=== PATIENT | male | born 1970 | race Caucasian/White ===

== ENCOUNTER → 2017-10-14 | Outpatient (CLI) | payer BC ==
[2017-10-14 08:18] LABS: Basophils # (A) 0.1 k/uL (0-0.2); Basophils % (A) 1 %; Eosinophils # (A) 0.4 k/uL (0-0.7); Eosinophils % (A) 5 %; HCT 47.9 % (39.0-53.0); HGB 15.8 gm/dL (13.0-17.5); Lymphocytes # (A) 2.2 k/uL (1.0-4.8); Lymphocytes % (A) 34 %; MCH 30.2 pg (25.0-35.0); MCHC 33.1 g/dL (31.0-37.0); MCV 91.2 fL (80.0-100.0); Mean Platelet Volume 7.2; Monocytes # (A) 0.5 k/uL (0-1.0); Monocytes % (A) 7 %; Neutrophils # (A) 3.3 k/uL (1.3-7.7); Neutrophils % (A) 50 %; Platelet Count 302 k/uL (150-450); RBC 5.25 m/uL (4.30-5.90); RDW 14.4 % (11.5-15.5); WBC 6.6 k/uL (3.8-10.6)
[2017-10-14 08:42] LABS: ALT 88 U/L (21-72); AST 42 U/L (17-59); Albumin 4.1 g/dL (3.5-5.0); Alkaline Phosphatase 57 U/L (38-126); Anion Gap 8 mmol/L; Blood Urea Nitrogen 17 mg/dL (9-20); Calcium 9.3 mg/dL (8.4-10.2); Carbon Dioxide 26 mmol/L (22-30); Chloride 107 mmol/L (98-107); Cholesterol 178 mg/dL (<200); Glucose 116 mg/dL (74-99); HDL Cholesterol 49 mg/dL (40-60); LDL Cholesterol,Calculated 118 mg/dL (0-99); Potassium 4.8 mmol/L (3.5-5.1); Sodium 141 mmol/L (137-145); Total Bilirubin 0.8 mg/dL (0.2-1.3); Total Protein 6.9 g/dL (6.3-8.2); Triglycerides 57 mg/dL (<150)
== END | disposition home or self-care (01) ==
LOC: LABWHC1 07:39
PROVIDERS: ATTEND Family Medicine
DX: Z00.00 Encounter for general adult medical examination without abnormal findings (principal); D64.9 Anemia, unspecified; I10 Essential (primary) hypertension; R60.9 Edema, unspecified
CPT/HCPCS: 36415; 80053; 80061; 84439; 84443; 85025

== ENCOUNTER 2021-03-23 08:43 | Day surgery (SDC) | payer BC ==
[2021-03-20 10:57] VITALS: BMI 31.5
[~2021-03-23 08:43] MED LIST: LACTATED RINGERS 1,000 ML IV SCH; LIDOCAINE 1% (10MG/ML) FOR IV START INTRADERMA PRN
[2021-03-23 09:20] VITALS: RESP 16; TEMP 97.2
[2021-03-23] MEDS ORDERED: PROPOFOL 10 MG/ML 20 ML VIAL IV ONE (09:51)
[2021-03-23] MEDS ORDERED: LIDOCAINE 1% INJ 10MG/ML (20 ML MDV) ONE (09:51)
--- NOTE | 2021-03-23 10:07 | P.PCN ---
Date of Procedure: 03/23/21 Procedure(s) Performed: BRIEF HISTORY: Patient is a 50-year-old pleasant male scheduled for an elective colonoscopy as a part of evaluation of intermittent rectal bleeding. PROCEDURE PERFORMED: Colonoscopy. PREOPERATIVE DIAGNOSIS: Intermittent rectal bleeding. IV sedation per Anesthesia. PROCEDURE: After informed consent was obtained, the patient, was brought into the endoscopy unit. IV sedation was administered by Anesthesia under continuous monitoring. Digital rectal examination was normal. Initially the Olympus CF-160 flexible video colonoscope was then inserted in the rectum, gradually advanced into the cecum without any difficulty. Careful examination was performed as the scope was gradually being withdrawn. Ileocecal valve and the appendiceal orifice were visualized and appeared normal. Prep was excellent. Mucosa of the cecum, ascending colon, transverse colon, descending colon, sigmoid colon, and rectum appeared normal. Retroflexion was performed in the rectum and small internal hemorrhoids were seen. The patient tolerated the procedure well. IMPRESSION: Normal-appearing colon from rectum to cecum no evidence of colorectal neoplasia . Small internal hemorrhoids. RECOMMENDATIONS: Findings of this examination were discussed with the patient as well as his family. Recommended a high-fiber diet and fiber supplements a regular basis. He was advised to have a repeat screening colonoscopy in 10 years.
[2021-03-23 10:27] VITALS: BP 132/85; PULSE 72
== END 2021-03-23 10:44 | disposition home or self-care (01) ==
LOC: ORWHC2ENDO 08:43
PROVIDERS: ATTEND Internal Medicine Gastroenterology
DX: K62.5 Hemorrhage of anus and rectum (principal); K64.8 Other hemorrhoids; F17.210 Nicotine dependence, cigarettes, uncomplicated
CPT/HCPCS: 45378; J2001; J2704

== ENCOUNTER → 2021-06-01 | Outpatient (CLI) | payer BC ==
--- NOTE | 2021-06-01 08:32 | CT ---
EXAMINATION TYPE: CT abdomen w con DATE OF EXAM: 06/01/2021 COMPARISON: None HISTORY: vomiting, mid abd pain CT DLP: 1351.7 mGycm CONTRAST: CT scan of the abdomen is performed with Oral Contrast and with IV Contrast, patient injected with 10 0 mL of Isovue 300. FINDINGS: LUNG BASES-: No visible nodule. No infiltrate. LIVER/GB: No calcified gallstones. No space occupying hepatic lesion. Biliary tree is of normal ca liber. PANCREAS: No inflammation. No distinct mass. SPLEEN: No splenic enlargement. No lesion seen. ADRENALS: No nodule. No thickening. KIDNEYS/BLADDER: No hydronephrosis. No nephrolithiasis. No distinct renal mass. Urinary bladder g rossly unremarkable. BOWEL: Normal appendix. Normal bowel caliber. No inflammation. LYMPH NODES: No greater than 1cm abdominal or pelvic lymph nodes are appreciated. AORTA: No significant abnormality. OSSEOUS STRUCTURES: No significant abnormality is seen. OTHER: No significant additional abnormality is seen. IMPRESSION: 1. No distinct abnormality seen to account for the patient's symptoms.
== END | disposition home or self-care (01) ==
LOC: RADCTMAIN 07:25
PROVIDERS: ATTEND Family Medicine
DX: R11.2 Nausea with vomiting, unspecified (principal)
CPT/HCPCS: 74160; Q9967

== ENCOUNTER 2021-08-31 11:46 | Day surgery (SDC) | payer BC ==
[2021-08-30 08:23] VITALS: BMI 32.3
[2021-08-31 12:47] VITALS: RESP 16; TEMP 97.8
[2021-08-31] MEDS: LACTATED RINGERS 1,000 ML IV SCH ×2 (12:48→13:12)
--- NOTE | 2021-08-31 13:25 | P.PCN ---
Date of Procedure: 08/31/21 Procedure(s) Performed: BRIEF HISTORY: Patient is a 50-year-old, pleasant, white male scheduled for an upper endoscopy as a part of evaluation of epigastric pain associated with intermittent nausea vomiting last 20 years duration. However his symptoms have progressively getting worse lately. His been taking Aleve on a regular basis for degenerative joint disease.. PROCEDURE PERFORMED: Esophagogastroduodenoscopy with biopsy. PREOPERATIVE DIAGNOSIS: Epigastric pain/nausea vomiting of several years du ration. IV sedation per anesthesia. PROCEDURE: After informed consent was obtained, the patient was brought into the endoscopy unit. IV sedation was administered by Anesthesia under continuous monitoring. Initially the Olympus GIF-140 video endoscope was inserted into the mouth. Esophagus intubated without any difficulty. It was gradually advanced into the stomach and duodenum and carefully examined. The bulb and the second part of the duodenum appeared normal. Biopsies were done from the duodenum to rule out celiac disease. The scope at this time was withdrawn to the stomach, adequately insufflated with air, and upon careful examination, mucosa of the antrum had multiple scattered erosions and biopsies were done from this area., body, cardia and the fundus appeared normal. The scope was then withdrawn into the esophagus. The GE junction was located at 39 cm from the incisors. The esophagus appeared normal. There were no erosions or ulcerations seen, biopsies were done from this area and the patient tolerated the procedure well. IMPRESSION: 1. Antral erosive gastritis. 2. Normal-appearing esophagus with no evidence of esophagitis. RECOMMENDATIONS: The findings of this examination were discussed with the patient as well as her family. He was advised to follow with the biopsy results. He will continue on omeprazole 20 mg daily and follow antireflux measures..
[2021-08-31 13:45] VITALS: BP 121/78; PULSE 72
== END 2021-08-31 14:22 | disposition home or self-care (01) ==
LOC: ORWHC2ENDO 11:46
PROVIDERS: ATTEND Internal Medicine Gastroenterology
DX: K29.50 Unspecified chronic gastritis without bleeding (principal); K21.00 Gastro-esophageal reflux disease with esophagitis, without bleeding; F17.210 Nicotine dependence, cigarettes, uncomplicated
CPT/HCPCS: 43239; 88305

== ENCOUNTER → 2023-02-17 | Outpatient (CLI) | payer OTHER ==
--- NOTE | 2023-02-18 09:38 | MR ---
EXAMINATION TYPE: MR shoulder LT wo con DATE OF EXAM: 02/17/2023 COMPARISON: Outside left shoulder x-ray January 17, 2023 HISTORY: Left shoulder pain with inability to raise arm over head for one month after dislocation inj ury TECHNIQUE: Multiplanar, multisequence imaging of the left shoulder is performed without contrast. FINDINGS: Suboptimal due to patient motion, repeat imaging sequences performed. Rotator Cuff: Full-thickness retracted tear of the supraspinatus tendon with some protraction to leve l of the distal clavicle coronal image 17. Narrow full-thickness retracted tear of the infraspinatus tendon with a few inferior fibers remaining intact. Prominent fluid surrounds the humeral head at thi s level. Fluid surrounds the subscapularis tendon. Tearing is present. Fluid surrounds and within the subscapularis muscle bulk. Acromioclavicular Joint: Moderate to severe Severe narrowing and capsular hypertrophy with mild spurr ing. Glenohumeral Joint: Moderate to large sized joint effusion. Labrum: Superior labral tear is present. Biceps Tendon: The long head of biceps is dislocated anteromedially from normal location within bicip ital groove. Increased signal and thickening of the intracapsular portion. Labral anchor not well see n. Bone marrow signal: No focal abnormal marrow signal is appreciated. No bony Hill-Sachs type deformity . Other: No additional significant abnormality is appreciated. IMPRESSION: Significant full-thickness rotator cuff tears with associated large joint effusion. Super ior labral tear. Dislocated long head of biceps tendon.
== END | disposition home or self-care (01) ==
LOC: RADMRIMAIN 19:22
PROVIDERS: ATTEND Orthopaedic Surgery
DX: S43.005A Unspecified dislocation of left shoulder joint, initial encounter (principal); S43.432A Superior glenoid labrum lesion of left shoulder, initial encounter

== ENCOUNTER → 2023-03-24 | Outpatient (CLI) | payer OTHER ==
[2023-03-24 16:39] LABS: BUN/Creat Ratio 21.75 Ratio (12.00-20.00); Blood Urea Nitrogen 17.4 mg/dL (9.0-27.0); Carbon Dioxide 22.5 mmol/L (21.6-31.8); Chloride 103 mmol/L (96-109); Glucose 145 mg/dL (70-110); Sodium 136 mmol/L (135-145)
[2023-03-24 16:40] LABS: Basophils # (A) 0.04 X 10*3/uL (0.00-0.10); Basophils % (A) 0.5 %; Eosinophils # (A) 0.23 X 10*3/uL (0.04-0.35); Eosinophils % (A) 3.1 %; HCT 44.6 % (39.6-50.0); HGB 14.5 d/dL (12.0-15.0); Lymphocytes # (A) 2.24 X 10*3/uL (0.90-5.00); Lymphocytes % (A) 30.4 %; MCH 30.8 pg (27.0-32.0); MCHC 32.5 d/dL (32.0-37.0); MCV 94.7 FL (80.0-97.0); Mean Platelet Volume 10.6 FL (9.5-12.2); Monocytes # (A) 0.48 X 10*3/uL (0.20-1.00); Monocytes % (A) 6.5 %; NRBC Per 100 WBC 0 X 10*3/uL (0.00-0.01); Neutrophils # (A) 4.36 X 10*3/uL (1.80-7.70); Neutrophils % (A) 59.1 %; Platelet Count 282 X 10*3/uL (140-440); RBC 4.71 X 10*6/uL (4.40-5.60); RDW 13.2 % (11.5-14.5); WBC 7.38 X 10*3/uL (4.50-10.00)
== END | disposition home or self-care (01) ==
LOC: LABPAT 07:56
PROVIDERS: ATTEND Orthopaedic Surgery
DX: Z01.812 Encounter for preprocedural laboratory examination (principal); M75.41 Impingement syndrome of right shoulder; S46.012A Strain of muscle(s) and tendon(s) of the rotator cuff of left shoulder, initial encounter; Y99.9 Unspecified external cause status
CPT/HCPCS: 36415; 80048; 85025; 93005

== ENCOUNTER 2023-04-04 07:36 | Day surgery (SDC) | payer OTHER ==
[2023-03-28 12:04] VITALS: BMI 33.0
--- NOTE | 2023-04-03 08:43 | P.HPOR ---
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 He had a fall and dislocated his shoulder. He's having pain and significant weakness ever since. He is having night symptoms as well. He notes some problems with the shoulder off and on for the past 2 years. Review of Systems As per HPI Past Medical History Past Medical History: Osteoarthritis (OA) Additional Past Medical History / Comment(s): exposed to COVID person on 08/18/21-had 3 neg COVID tests since then, denies symptoms, did have mask on and social distance History of Any Multi-Drug Resistant Organisms: None Reported Past Surgical History: Joint Replacement, Orthopedic Surgery, Tonsillectomy Additional Past Surgical History / Comment(s): Colonoscopies. RT SALUD, RT KNEE SX, Past Anesthesia/Blood Transfusion Reactions: No Reported Reaction Smoking Status: Current every day smoker - Past Family History Mother Family Medical History: No Reported History Medications and Allergies Home Medications Medication Instructions Recorded Confirmed Type Acetaminophen [Tylenol Arthritis] 1,300 mg PO Q8H PRN 03/28/23 03/28/23 History Allergies Allergy/AdvReac Type Severity Reaction Status Date / Time bacitracin AdvReac BLISTERS, Verified 03/28/23 11:42 [From Neosporin EATS SKIN ([id number])] neomycin AdvReac BLISTERS, Verified 03/28/23 11:42 [From Neosporin EATS SKIN ([id number])] polymyxin B AdvReac BLISTERS, Verified 03/28/23 11:42 [From Neosporin EATS SKIN ([id number])] Physical Examination - Shoulder left Appearance: effusion Effusion grade: trace Tenderness with palpation: anterior, bicipital groove Pain: with abduction, with forward flexion ROM: forward flexion: 20 degrees (90 passively) ROM: external rotation: 10 degrees Crepitus with motion: Yes Strength: abduction: 3/5 Strength: forward flexion: 3/5 Strength: external rotation: 3/5 Tests: internal impingement tests: positive, external impingment tests: positive, anterior instability tests: positive Results The patient is a well-developed well-nourished male approximately 5 foot 10, 230 pounds of endomorphic habitus. HEENT exam is nonfocal, neck is supple. He is tender about the left shoulder anterior subacromial space. Moderate crepitus is noted. He has limited active range of motion with increased passive motion. His distal neurovascular exam appears intact in the left upper extremity. - Diagnostic results Shoulder MRI: image reviewed (Left shoulder MRI is reviewed and shows a large retracted rotator cuff tear.) Assessment and Plan Assessment: Left anterior glenohumeral dislocation with large retracted rotator cuff tear Probable acute on chronic left rotator cuff tear Plan: I talked to the patient went regarding his condition along with treatment options. At this point is quite limited having both pain and weakness and limited motion after this acute injury. After thorough discussion he opted to proceed with surgery. We'll plan to proceed with arthroscopic evaluation with rotator cuff debridement versus repair. He understands the entire rotator cuff may not be repairable. We'll also plan on subacromial decompression and possible biceps tenodesis. Risks and benefits were discussed at length in layman's terms. We will likely perform that as an outpatient procedure.
[2023-04-04] MEDS ORDERED: ONDANSETRON 4 MG/2 ML VIAL IVP ONE (07:53)
[2023-04-04] MEDS ORDERED: HYDROmorphone 0.5 MG/0.5 ML SYRINGE IVP PRN (07:53)
[2023-04-04] MEDS ORDERED: DEXAMETHASONE SOD PHOSPHATE 4 MG/ML 1 ML VIAL IV ONE (07:53)
[2023-04-04] MEDS ORDERED: LACTATED RINGERS 1,000 ML IV SCH (07:53)
[2023-04-04 08:22] VITALS: RESP 16
[2023-04-04] MEDS ORDERED: MIDAZOLAM 2 MG/2 ML VIAL IVP ONE (08:57)
[2023-04-04] MEDS ORDERED: ePHEDrine 50 MG/ML 1 ML VIAL ONE (09:12)
[2023-04-04] MEDS ORDERED: SUCCINYLCHOLINE CHLORIDE 200 MG/10 ML VIAL IV ONE (09:12)
[2023-04-04] MEDS ORDERED: KETOROLAC 15 MG/ML 1 ML VIAL ONE (09:12)
[2023-04-04] MEDS ORDERED: PROPOFOL 10 MG/ML 20 ML VIAL IV ONE (09:12)
[2023-04-04] MEDS ORDERED: LIDOCAINE 2% INJ 20 MG/ML (2 ML VIAL) ONE (09:12)
[2023-04-04] MEDS ORDERED: HYDROmorphone (PF) 1 MG/ML ONE (09:12)
[2023-04-04] MEDS ORDERED: DEXAMETHASONE SOD PHOSPHATE 4 MG/ML 1 ML VIAL ONE (09:12)
[2023-04-04] MEDS ORDERED: fentaNYL (PF) 50 MCG/ML 2 ML AMP ONE (09:12)
[2023-04-04] MEDS ORDERED: MIDAZOLAM 2 MG/2 ML VIAL ONE (09:12)
[2023-04-04] MEDS ORDERED: ROPIVACAINE 5 MG/ML 30 ML VIAL ONE (09:12)
[2023-04-04] MEDS ORDERED: PHENYLEPHRINE-0.9% NACL SYG 1,000 MCG/10 ML SYRINGE ONE (09:12)
--- NOTE | 2023-04-04 11:37 | P.OP ---
Date of Procedure: 04/04/23 Preoperative Diagnosis: Large retracted left rotator cuff tear Postoperative Diagnosis: Same in addition to high-grade partial-thickness tear intra-articular portion long head of the biceps Procedure(s) Performed: Left shoulder arthroscopic subacromial decompression/biceps tenotomy/rotator cuff repair Implants: Arthrex 4.75 mm swivel lock anchor 3, 5.5 mm swivel lock anchor 1 Anesthesia: GMA, stuart Surgeon: Michael Hussein Cleaning Specialist #1: Chris Trujillo Estimated Blood Loss (ml): 10 Pathology: none sent Condition: stable Disposition: PACU Indications for Procedure: The patient's a 52-year-old male presents with left shoulder pain after dislocating it in traumatic event previously with significant weakness and pain. Upon evaluation he is noted to have a large retracted rotator cuff tear. A discussion of the risks and benefits of operative intervention was made with patient. He opted to proceed with surgery. Operative risks to include infection, neurovascular injury, development of blood clots, possible tendon re rupture, possible postoperative stiffness and need for subsequent procedures was discussed. Informed consent was obtained. Operative Findings: As below Description of Procedure: The patient was brought to the operating room, and after induction of general anesthesia was placed in a beachchair position. A preoperative interscalene block was placed for postoperative analgesia. I examined the left shoulder. He did have moderate loss of passive forward elevation. The left upper extremity was prepped and draped in normal fashion. The bony outlines the acromion, distal clavicle, and coracoid process were outlined with a skin marker. The glenohumeral joint was inflated with 50 mL of saline utilizing a spinal needle from posterior approach. A posterior portal was made through a 5 mm skin incision 1 cm medial and inferior to the posterior lateral border time. A blunt trocar was used to easily into the joint. Diagnostic arthroscopy was performed. An anterior portal was made just lateral to the coracoid process entering the joint above the subscapularis tendon. The subscapularis tendon appeared to be intact. Anterior labrum was detached. The inferior recess was inspected. The posterior labrum was intact. There was a high-grade partial-thickness tear of the long head of the biceps involving interarticular portion. It was elected to proceed with release at this point. This was released from the superior labrum with electrocautery and was allowed to retract to the bicipital groove. On inspection the rotator cuff, a large tear involving the supraspinatus, infraspinatus, and a portion of the teres minor was noted retracted to the level of the glenoid. The arthroscope was placed into the subacromial space. A late ral portal was made 2 centimeters inferior to the anterior lateral border of the acromion. The rotator cuff was then mobilized with a traction suture. This was then brought back to the midportion of the greater tuberosity. The soft tissue on the undersurface of the acromion was debrided with a motorized shaver and electrocautery clearly defining the anterior medial and lateral borders as well as the distal clavicle. An anterior inferior acromioplasty was performed with a motorized anthony starting anterolateral, then extending this posteriorly, then extending this medially. I converted to a flat acromion and this was verified in the posterior and lateral viewing portals. The greater tuberosity was lightly decorticating with a shaver down to a bleeding bony surface. An accessory superior lateral portal was made just off the lateral edge of the acromion for anchor placement. 2 anchors were then placed just off the articular surface with the appropriate starting awl. 4.75 mm anchors preloaded with #2 fiber tape were placed. Good purchase was obtained. These fiber tapes were then passed the rotator cuff with a scorpion suture passer. A lateral row was created crisscrossing these tapes. One 4.75 mm full lock anchor and one 5.5 swivel lock anchor was placed laterally. Good purchase was obtained. Final arthroscopic view showed adequate compression at the footprint. The arthroscope was then removed. The portals were closed with simple 3-0 nylon sutures. A sterile dressing was applied in addition to an abductor brace. The patient was then awoken from general anesthesia and transferred to recovery room in good condition. Blood loss was estimated at 10 mL. No complications were incurred. Sponge and needle counts were correct in the case. Chris NGUYEN assisted and the major components of the case to include arm positioning, anchor placement, and rotator cuff repair.
[2023-04-04 11:41] VITALS: TEMP 97
[2023-04-04] MEDS ORDERED: LACTATED RINGERS 1,000 ML IV ONE (13:00)
[2023-04-04 13:53] VITALS: BP 117/68; PULSE 64
--- NOTE | 2023-04-05 20:00 | P.ANPRN ---
Procedure Note - Anesthesia - Nerve Block Performed Left Interscalene Single Time Out Performed: Yes Date of Procedure: 04/04/23 Procedure Start Time: 08:56 Procedure Stop Time: 09:00 Location of Patient: PreOp Indication: Acute Post-Operative Pain, Requested by Surgeon Sedation Type: Sedate with meaningful contact maintained Preparation: Sterile Prep Position: Supine Needle Types: Pajunk Needle Gauge: 21 Ultrasound used to visualize needle placement: Yes Ultrasound used to observe medication spread: Yes Blood Aspirated: No Pain Paresthesia on Injection Noted: No Resistance on Injection: Normal Image Stored and Saved: Yes Events: Uneventful and Well Tolerated (Ropivacaine 0.5% 20 mL plus dexamethasone 4 mg)
== END 2023-04-04 14:31 | disposition home or self-care (01) ==
LOC: OR 07:36
PROVIDERS: ATTEND Orthopaedic Surgery
DX: S46.012A Strain of muscle(s) and tendon(s) of the rotator cuff of left shoulder, initial encounter (principal); S46.112A Strain of muscle, fascia and tendon of long head of biceps, left arm, initial encounter; S43.015A Anterior dislocation of left humerus, initial encounter; W19.XXXA Unspecified fall, initial encounter; G89.18 Other acute postprocedural pain; M19.90 Unspecified osteoarthritis, unspecified site; Z86.16 Personal history of COVID-19; F17.210 Nicotine dependence, cigarettes, uncomplicated; Z79.1 Long term (current) use of non-steroidal anti-inflammatories (NSAID); Z88.1 Allergy status to other antibiotic agents; Z88.8 Allergy status to other drugs, medicaments and biological substances; Z96.641 Presence of right artificial hip joint
CPT/HCPCS: 64415; 29827; 29826; C1713 ×3; C1894; J2250; J0330; J1100; J0690; J2405; J3010; J1170; J2795; J1885; J2370; J2704; J2001

== ENCOUNTER → 2024-10-29 | Outpatient (CLI) | payer BC ==
[2024-10-29 15:10] LABS: Basophils # (A) 0.04 X 10*3/uL (0.00-0.10); Basophils % (A) 0.6 %; Eosinophils # (A) 0.29 X 10*3/uL (0.04-0.35); Eosinophils % (A) 4.6 %; HCT 45.7 % (39.6-50.0); HGB 15.2 g/dL (13.0-17.0); Lymphocytes # (A) 1.47 X 10*3/uL (0.90-5.00); Lymphocytes % (A) 23.4 %; MCHC 33.3 g/dL (32.0-37.0); MCV 93.1 FL (80.0-97.0); Mean Platelet Volume 9.8 FL (9.5-12.2); Monocytes # (A) 0.68 X 10*3/uL (0.20-1.00); Monocytes % (A) 10.8 %; NRBC Per 100 WBC 0 X 10*3/uL (0.00-0.01); Neutrophils # (A) 3.78 X 10*3/uL (1.80-7.70); Neutrophils % (A) 60.4 %; Platelet Count 295 X 10*3/uL (140-440); RBC 4.91 X 10*6/uL (4.40-5.60); WBC 6.27 X 10*3/uL (4.50-10.00)
[2024-10-29 15:16] LABS: ALT 29 U/L (10-49); AST 29 U/L (14-35); Albumin 4.2 g/dL (3.8-4.9); Alkaline Phosphatase 71 U/L (41-126); Blood Urea Nitrogen 17.1 mg/dL (9.0-27.0); Calcium 9.2 mg/dL (8.7-10.3); Carbon Dioxide 22.3 mmol/L (21.6-31.8); Chloride 105 mmol/L (96-109); Globulin 2.8 g/dL (1.6-3.3); Glucose 126 mg/dL (70-110); Potassium 4.2 mmol/L (3.5-5.5); Sodium 138 mmol/L (135-145); Total Bilirubin 0.8 mg/dL (0.3-1.2)
[2024-10-29 15:27] LABS: INR 0.97 sec (0.93-1.11); Prothrombin Time 11.1 sec (9.9-11.9)
== END | disposition home or self-care (01) ==
LOC: LABWHC1 10:17
PROVIDERS: ATTEND Family Medicine
DX: Z01.818 Encounter for other preprocedural examination (principal)
CPT/HCPCS: 36415; 80053; 85025; 85610

== ENCOUNTER → 2024-10-29 | Outpatient (CLI) | payer BC | END | disposition home or self-care (01) | LOC: LABPAT 10:13 | PROVIDERS: ATTEND Orthopaedic Surgery | DX: Z01.818 Encounter for other preprocedural examination (principal); Z22.322 Carrier or suspected carrier of Methicillin resistant Staphylococcus aureus; M16.12 Unilateral primary osteoarthritis, left hip | CPT/HCPCS: 86850; 86900; 86901; 87070 ==

== ENCOUNTER 2024-11-02 05:51 | Day surgery (SDC) | payer BC, OTHER ==
--- NOTE | 2024-11-01 08:52 | P.HPOR ---
History of Present Illness H&P Date: 11/01/24 Chief Complaint: Left hip pain The patient is a 53-year-old male who presents with left hip pain for the past several years worsening this year. He is having groin and thigh pain with any weightbearing activities. He is having difficult time getting up from a seated position. He is having night symptoms. He has tried medications without much relief. He notes daily pain that limits him. Review of Systems Per HPI Past Medical History Past Medical History: GERD/Reflux, Hypertension, Osteoarthritis (OA) Additional Past Medical History / Comment(s): exposed to COVID person on 08/18/21-had 3 neg COVID tests since then, denies symptoms, did have mask on and social distance History of Any Multi-Drug Resistant Organisms: None Reported Past Surgical History: Joint Replacement, Orthopedic Surgery, Tonsillectomy Additional Past Surgical History / Comment(s): colonoscopies, Lt. rotator cuff repair, Rt. SALUD, bilat. knee arthroscopies Past Anesthesia/Blood Transfusion Reactions: No Reported Reaction Smoking Status: Current every day smoker - Past Family History Mother Family Medical History: No Reported History Medications and Allergies Home Medications Medication Instructions Recorded Confirmed Type Acetaminophen [Tylenol Arthritis] 1,300 mg PO BID 03/28/23 10/27/24 History Ibuprofen [Motrin] 800 mg PO Q8H PRN 10/27/24 10/27/24 History Losartan Potassium 100 mg PO QAM 10/27/24 10/27/24 History amLODIPine BESYLATE 5 mg PO QAM 10/27/24 10/27/24 History hydroCHLOROthiazide [Hydrodiuril] 25 mg PO QAM 10/27/24 10/27/24 History Allergies Allergy/AdvReac Type Severity Reaction Status Date / Time bacitracin AdvReac BLISTERS, Verified 10/27/24 10:16 [From Neosporin EATS SKIN ([id number])] neomycin AdvReac BLISTERS, Verified 10/27/24 10:16 [From Neosporin EATS SKIN ([id number])] polymyxin B AdvReac BLISTERS, Verified 10/27/24 10:16 [From Neosporin EATS SKIN ([id number])] Physical Examination - Hip left Gait: antalgic Tenderness with palpation: anterior Pain with motion: internal rotation and hip flexion ROM: flexion: 60 degrees ROM: internal rotation: 0 degrees ROM: external rotation: 50 degrees Crepitus with motion: Yes Strength: extension: 5/5 Strength: flexion: 5/5 Strength: abduction: 5/5 Tests: impingement tests: positive Results The patient is a well-developed well-nourished male approximately 5 foot 10, 230 pounds of endomorphic habitus. HEENT exam is nonfocal, neck is supple. He has painful passive motion of the left hip. Straight leg raise is negative. He has 1 cm shortening of the left lower extremity compared to the right. His distal neurovascular exam appears intact in the left lower extremity. - Diagnostic results Hip x-ray: image reviewed (X-rays of the left hip obtained the office show severe osteoarthrosis with [id number] changes and subchondral sclerosis.) Assessment and Plan Assessment: Left hip severe osteoarthrosis Plan: I talked to the patient at length regarding his condition along with treatment options. At this point he is quite symptomatic having pain and mechanical symptoms related to his left hip osteoarthrosis despite conservative measures. After a thorough discussion he opts to proceed with surgery. We will plan to proceed with left total hip arthroplasty utilizing an anterior approach. Risks and benefits were discussed at length in layman's terms. We will institute DVT prophylaxis postoperatively.
[~2024-11-02 05:51] MED LIST changes: -LACTATED RINGERS 1,000 ML IV SCH; -LIDOCAINE 1% (10MG/ML) FOR IV START INTRADERMA PRN; +TRANEXAMIC 1,000 MG/100ML-NACL 1,000 MG in SALINE 1 100ML.BAG IVPB PRN
[2024-11-02] MEDS: IV FLUID CONTINUATION 1,000 ML IV ONE ×3 (06:16→11:11)
[2024-11-02] MEDS: LACTATED RINGERS 1,000 ML IV SCH (06:46)
[2024-11-02] MEDS: DEXAMETHASONE SOD PHOSPHATE 4 MG/ML 1 ML VIAL IV ONE (06:46)
[2024-11-02] MEDS: MELOXICAM 7.5 MG TAB PO PRN (06:46)
[2024-11-02] MEDS: ONDANSETRON 4 MG/2 ML VIAL IVP ONE (06:46)
[2024-11-02] MEDS: ACETAMINOPHEN TAB 500 MG TAB PO PRN (06:47)
[2024-11-02] MEDS: MIDAZOLAM 2 MG/2 ML VIAL IV ONE (06:56)
[2024-11-02] MEDS ORDERED: fentaNYL (PF) 50 MCG/ML 2 ML AMP ONE (07:24)
[2024-11-02] MEDS ORDERED: LIDOCAINE 1% INJ 10MG/ML (20 ML MDV) ONE (07:24)
[2024-11-02] MEDS ORDERED: HYDROmorphone (PF) 1 MG/ML ONE (07:24)
[2024-11-02] MEDS ORDERED: ROPIVACAINE 5 MG/ML 30 ML VIAL ONE (07:24)
[2024-11-02] MEDS ORDERED: SODIUM CHLORIDE 0.9% (PF) 10 ML VIAL ONE (07:24)
[2024-11-02] MEDS ORDERED: PROPOFOL 10 MG/ML 20 ML VIAL IV ONE (07:24)
[2024-11-02] MEDS ORDERED: KETAMINE HCL IN 0.9 % NACL 50 MG/5 ML SYRINGE ONE (07:24)
[2024-11-02] MEDS ORDERED: DEXAMETHASONE SOD PHOSPHATE 4 MG/ML 1 ML VIAL ONE (07:24)
[2024-11-02] MEDS ORDERED: TRANEXAMIC 1,000 MG/100ML-NACL PREMIX BAG ONE (07:24)
[2024-11-02] MEDS ORDERED: SUCCINYLCHOLINE CHLORIDE 200 MG/10 ML VIAL IV ONE (07:24)
[2024-11-02] MEDS ORDERED: ALBUTEROL HFA INHALER INHALATION ONE (07:24)
[2024-11-02] MEDS ORDERED: MIDAZOLAM 2 MG/2 ML VIAL ONE (07:24)
[2024-11-02] MEDS: ceFAZolin 1,000 MG in SODIUM CHLORIDE 0.9% 1,000 ML IRRIGATION ONE (07:35)
--- NOTE | 2024-11-02 07:36 | P.ANPRN ---
Procedure Note - Anesthesia - Nerve Block Performed Left Kulwant Single Time Out Performed: Yes Date of Procedure: 11/02/24 Procedure Start Time: 06:56 Procedure Stop Time: 07:01 Location of Patient: PreOp Indication: Acute Post-Operative Pain, Requested by Surgeon Sedation Type: Sedate with meaningful contact maintained Preparation: Sterile Prep Position: Supine Needle Types: Pajunk Needle Gauge: 21 Ultrasound used to visualize needle placement: Yes Ultrasound used to observe medication spread: Yes Injectate: 0.5% Ropivacaine (see comment for volume) (10 mL +10 mL of normal saline +4 mg dexamethasone) Blood Aspirated: No Pain Paresthesia on Injection Noted: No Resistance on Injection: Normal Image Stored and Saved: Yes Events: Uneventful and Well Tolerated
[2024-11-02] MEDS: LACTATED RINGERS 1,000 ML IV ONE (09:27)
[2024-11-02] MEDS ORDERED: HYDROmorphone 0.5 MG/0.5 ML SYRINGE IVP PRN (09:50)
[2024-11-02] MEDS ORDERED: MAGNESIUM HYDROXIDE 2,400 MG/30 ML CUP PO PRN (09:50)
[2024-11-02] MEDS ORDERED: NALOXONE 0.4 MG/ML 1 ML VIAL IV PRN (09:50)
[2024-11-02] MEDS ORDERED: hydrOXYzine pamoate 25 MG CAP PO PRN (09:50)
[2024-11-02] MEDS ORDERED: HYDROcodone/APAP 5-325MG 1 EACH TAB PO PRN (09:50)
--- NOTE | 2024-11-02 09:56 | FL ---
EXAMINATION TYPE: FL guidance operating room, XR Hip Limited LT DATE OF EXAM: 11/02/2024 9:51 AM COMPARISON: Pre Operative Images if available both CT/MRI or plain film CLINICAL INDICATION: Male, 53 years old with history of LEFT ANTERIOR HIP; TECHNIQUE: FL guidance operating room, XR Hip Limited LT, multiple fluoroscopic images provided for p rocedure. DAP: 2.6786 mGym2 Gycm2 uGym2 cGycm2 or equivalent. FINDINGS: Fluoroscopic images during internal fixation/arthroplasty demonstrate hardware in appropriate positio n. Hardware appears intact. No immediate complication identified. IMPRESSION: 1. No evidence for intraoperative complication. 2. Please see the operative/procedural note for further details. [facility], , 11/02/2024 9:54 AM
[2024-11-02 10:05] VITALS: TEMP 97
--- NOTE | 2024-11-02 10:06 | P.OP ---
Date of Procedure: 11/02/24 Preoperative Diagnosis: Left hip severe osteoarthrosis Postoperative Diagnosis: Same Procedure(s) Performed: Left total hip arthroplastyanterior approachpress-fit Implants: [employer] Polar stem size 1lateralcollared press-fit femoral stem, 36+0 Oxinium femoral head, 58 mm press-fit R3 acetabular shell. Anesthesia: CINTIA Surgeon: Michael Hussein Marketing Research Analyst #1: Chris Trujillo Estimated Blood Loss (ml): 200 Pathology: none sent Condition: stable Disposition: PACU Indications for Procedure: The patient is a 53-year-old male who presents with progressive left hip pain secondary to osteoarthrosis despite conservative measures. A discussion of the risks and benefits of operative intervention versus continued conservative measures was made with the patient. He opted to proceed with surgery. Operative risks include infection, neurovascular injury, development of blood clots, fracture, leg length discrepancy, possible instability, possible component loosening/failure and possible need for subsequent procedures was disc ussed. Informed consent was obtained. Operative Findings: As below Description of Procedure: The patient was brought to the operating room, and after induction of spinal anesthesia was placed supine on the Agnes table. Positioning was checked with fluoroscopy. The left hip was then prepped and draped in a normal fashion. A 12 cm incision was then made starting 2 fingerbreadths distal and 3 finger breaths posterior to the ASIS in line with the proximal femur. The skin was incised sharply. Subcutaneous tissues were divided sharply. Electrocautery was used for hemostasis. The fascia was split in line with skin incision. The interval between the sartorius and tensor fascia james was then bluntly developed. The posterior fascia was opened with electrocautery. The lateral circumflex vessels were identified and cauterized prior to sectioning. A retractor was placed along the superior femoral neck as well as the anterior acetabular rim. A wide capsulotomy was performed. The neck cut was then made at a 45 angle to the shaft approximately 1 1/2 cm above the level of the lesser trochanter. The head was extracted. Attention was then paid towards preparing the acetabular. Anterior and posterior retractors were placed. The remaining capsular labral tissue sharply debrided clearly defining the acetabular margins. I began reaming with a 51 mm reamer taking care to initially medialize then reaming at 45 of abduction and 20 of anteversion. Sequential reaming is performed up to 57 mm. A trial 58 mm acetabular shell was inserted in the same orientation and was fully seated. There was good rim fit and stability. Positioning was checked with fluoroscopy. The final 58 mm acetabular shell was inserted again at 45 of abduction and 20 of anteversion. This was fully seated. There was good rim fit and stability. Again fluoroscopy was used to check the adequacy of placement. A neutral polyethylene liner was gently impacted. Care was taken to avoid any soft tissue interposition. Pulsatile lavage was utilized. Attention was then paid towards preparing the proximal femur. The central region was cleared of soft tissue. A canal finder was used to find the femoral canal. Sequential broaching was performed up to size 1 taking care to lateralize proximally. A calcar mill was used to fashion the medial calcar. There was good rotational stability. A lateralized neck along with a 36 mm +0 head was placed. The hip was gently reduced. Fluoroscopy was used to check the adequacy of positioning along with leg lengths. I felt both were good. The hip was gently dislocated. The trial components were removed. The final size 1lateralized collared standard press- fit femoral stem was inserted parallel to the posterior cortex. This was fully seated and there was good rotational stability. A 36 mm +0 Oxinium femoral head was placed. This was gently impacted. The hip was then gently reduced. Final fluoroscopic view showed adequate placement implant along with latter day of leg length. Stability was checked with 80 of external rotation and 60 of extension of the right hip. The wound was irrigated with sterile lavage. The fascia was closed with running 0 Vicryl suture. There was minimal drainage therefore a deep drain was not placed. The second dose of IV TXA was given. The subcutaneous tissues were reapproximated interrupted 2-0 Vicryl sutures. The skin was reapproximated with 3-0 subcuticular strata fix suture. Skin tape and adhesive was applied. A sterile dressing was applied. The patient was then awoken from sedation and transferred to recovery room in good condition. Blood loss was estimated at 200 mL. No complications were incurred. Sponge and needle counts were correct at the end of the case. Chris NGUYEN assisted during the major components is case to include exposure, bone resection, implantation, and closure.
--- NOTE | 2024-11-02 10:33 | XR ---
EXAMINATION TYPE: XR Hip Limited LT DATE OF EXAM: 11/02/2024 10:27 AM COMPARISON: CLINICAL INDICATION: Male, 53 years old with history of Status post hip surgery, assess surgical alig nmmelany, pain TECHNIQUE: XR Hip Limited LT; Frontal view FINDINGS: Post arthroplasty changes, hardware is intact, alignment is appropriate. No evidence of fra cture. Postoperative changes of the soft tissues with subcutaneous gas. No evidence of any acute osse ous pathology or joint dislocation. IMPRESSION: Hip arthroplasty with hardware intact and in appropriate alignment. No acute fracture. [facility], , 11/02/2024 10:31 AM
[2024-11-02] MEDS: HYDROmorphone 0.5 MG/0.5 ML SYRINGE IVP PRN (10:47)
[2024-11-02 11:15] VITALS: RESP 16
[2024-11-02] MEDS: HYDROcodone/APAP 7.5-325MG 1 EACH TAB PO PRN (11:32)
[2024-11-02 12:16] VITALS: BP 137/85; PULSE 87
[2024-11-02] MEDS ORDERED: SENNOSIDES-DOCUSATE SODIUM 1 EACH TAB PO SCH (21:00)
== END 2024-11-02 13:03 | disposition home health service (06) ==
LOC: OR 05:51
PROVIDERS: ATTEND Orthopaedic Surgery
DX: M16.12 Unilateral primary osteoarthritis, left hip (principal); G89.18 Other acute postprocedural pain; F17.200 Nicotine dependence, unspecified, uncomplicated; I10 Essential (primary) hypertension
CPT/HCPCS: 27130; 97161; 64999; 73501; C1776; J2250; J0330; J1100; J0690 ×2; J2405; J2003; J3010; J1171 ×2; J2795; J2704

== ENCOUNTER 2025-04-21 09:30 | Emergency (ER) | payer BC ==
[2025-04-21 09:40] VITALS: RESP 18; TEMP 98
--- NOTE | 2025-04-21 10:10 | ED ---
Chest Pain HPI - General Chief Complaint: Chest Pain Stated Complaint: Chest Pain/Arm Numbness Time Seen by Provider: 04/21/25 09:42 Source: patient Mode of arrival: ambulatory Limitations: no limitations - History of Present Illness Initial Comments: 54-year-old male with past medical history of hypertension and osteoarthritis who presents emergency department reporting chest pain. States that he has pain in the left side of his chest that radiates to his left shoulder and left arm. Had some numbness in his left arm. Admits to associated shortness of breath and dizziness. Symptoms started at 7 AM this morning. Patient does have a history of hypertension and GERD. Pain is alleviated at this time. No other alleviating, precipitating modifying factors - Related Data Home Medications Medication Instructions Recorded Confirmed Losartan Potassium 100 mg PO DAILY 10/27/24 04/21/25 amLODIPine [Norvasc] 5 mg PO DAILY 04/21/25 04/21/25 Allergies Allergy/AdvReac Type Severity Reaction Status Date / Time bacitracin AdvReac BLISTERS, Verified 04/21/25 19:17 [From Neosporin EATS SKIN ([id number])] neomycin AdvReac BLISTERS, Verified 04/21/25 19:17 [From Neosporin EATS SKIN ([id number])] polymyxin B AdvReac BLISTERS, Verified 04/21/25 19:17 [From Neosporin EATS SKIN ([id number])] Review of Systems ROS Statement: Those systems with pertinent positive or pertinent negative responses have been documented in the HPI. ROS Other: All systems not noted in ROS Statement are negative. Past Medical History Past Medical History: GERD/Reflux, Hypertension, Osteoarthritis (OA) Additional Past Medical History / Comment(s): exposed to COVID person on 08/18/21-had 3 neg COVID tests since then, denies symptoms, did have mask on and social distance History of Any Multi-Drug Resistant Organisms: None Reported Past Surgical History: Joint Replacement, Orthopedic Surgery, Tonsillectomy Additional Past Surgical History / Comment(s): colonoscopies, Lt. rotator cuff repair, Rt. SALUD, bilat. knee arthroscopies Past Anesthesia/Blood Transfusion Reactions: No Reported Reaction Past Psychological History: No Psychological Hx Reported Smoking Status: Current every day smoker Past Alcohol Use History: Occasional Past Drug Use History: Marijuana - Past Family History Mother Family Medical History: No Reported History General Exam Limitations: no limitations General appearance: alert, in no apparent distress Head exam: Present: atraumatic, normocephalic, normal inspection Eye exam: Present: normal appearance, PERRL, EOMI. Absent: scleral icterus, conjunctival injection, periorbital swelling ENT exam: Present: normal exam, mucous membranes moist Neck exam: Present: normal inspection. Absent: tenderness, meningismus, lymphadenopathy Respiratory exam: Present: normal lung sounds bilaterally. Absent: respiratory distress, wheezes, rales, rhonchi, stridor Cardiovascular Exam: Present: regular rate, normal rhythm, normal heart sounds. Absent: systolic murmur, diastolic murmur, rubs, gallop, clicks GI/Abdominal exam: Present: soft, normal bowel sounds. Absent: distended, tenderness, guarding, rebound, rigid Extremities exam: Present: normal inspection, full ROM, normal capillary refill. Absent: tenderness, pedal edema, joint swelling, calf tenderness Back exam: Present: normal inspection Neurological exam: Present: alert, oriented X3, CN II-XII intact Psychiatric exam: Present: normal affect, normal mood Skin exam: Present: warm, dry, intact, normal color. Absent: rash Course Vital Signs 04/21/25 04/21/25 04/21/25 09:36 10:24 12:44 Temperature 98.0 F Pulse Rate 61 70 66 Respiratory 18 18 18 Rate Blood Pressure 105/67 97/68 108/70 O2 Sat by Pulse 93 L 96 96 Oximetry 04/21/25 14:36 Temperature Pulse Rate 72 Respiratory 18 Rate Blood Pressure 106/69 O2 Sat by Pulse 96 Oximetry Chest Pain MDM - MDM Was pt. sent in by a medical professional or institution (, PA, RADIAL ARM SAW OPERATOR, urgent care, hospital, or long term...) When possible be specific @ -No Did you speak to anyone other than the patient for history (EMS, parent, family, police, friend...)? What history was obtained from this source @ -No Did you review nursing and triage notes (agree or disagree)? Why? @ -I reviewed and agree with nursing and triage notes Were old charts reviewed (outside hosp., previous admission, EMS record, old EKG, old radiological studies, urgent care reports/EKG's, long term records)? Report findings @ -No old charts were reviewed Differential Diagnosis (chest pain, altered mental status, abdominal pain women, abdominal pain men, vaginal bleeding, weakness, fever, dyspnea, syncope, headache, dizziness, GI bleed, back pain, seizure, CVA, palpatations, mental health, musculoskeletal)? @ -Differential Chest Pain: Stable Angina, Unstable Angina, STEMI, NSTEMI Aortic Dissection, Pneumothorax, Musculoskeletal, Esophageal Spasm GERD, Cholecystitis, Pancreatitis, Zoster, this is not meant to be an all-inclusive list. EKG interpreted by me (3pts min.). @ -Yes and demonstrates sinus rhythm with a rate of 71. CA interval 145. QRS 89. QTc of 373. No acute ST segment elevations or depressions X-rays interpreted by me (1pt min.). @ -Yes which demonstrates no acute process CT interpreted by me (1pt min.). @ -None done U/S interpreted by me (1pt. min.). @ -None done What testing was considered but not performed or refused? (CT, X-rays, U/S, labs)? Why? @ -Serial troponins and echo however patient does not want to be admitted What meds were considered but not given or refused? Why? @ -None Did you discuss the management of the patient with other professionals (professionals i.e. , PA, RADIAL ARM SAW OPERATOR, lab, RT, psych nurse, director social, safety companion, teacher, annual giving officer, case specialist)? Give summary @ -No Was smoking cessation discussed for >3mins.? @ -No Was critical care preformed (if so, how long)? @ -No Were there social determinants of health that impacted care today? How? (Homelessness, low income, unemployed, alcoholism, drug addiction, transportation, low edu. Level, literacy, decrease access to med. care, retirement, rehab)? @ -No Was there de-escalation of care discussed even if they declined (Discuss DNR or withdrawal of care, Hospice)? DNR status @ -No What co-morbidities impacted this encounter? (DM, HTN, Smoking, COPD, CAD, Cancer, CVA, ARF, Chemo, Hep., AIDS, mental health diagnosis, sleep apnea, morbid obesity)? @ -Hypertension Was patient admitted / discharged? Hospital course, mention meds given and route, prescriptions, significant lab abnormalities, going to OR and other pertinent info. @ -Upon arrival patient seen and evaluated in bed 27. Thorough history and physical exam was performed. IV was established and laboratory studies are conducted. Chest x-ray was performed. Patient given the option for overnight observation with serial troponins. Patient would prefer to go home. He is pain-free. Second troponin was performed and is negative. At this time he will be discharged. Instructed to follow-up with his primary care. Should have an echo and stress test performed. Admits that he just had 1 in September and it was normal. I do feel that the patient should possibly have another and therefore discussed this with his primary care. Patient was agreeable to return for any new or worsening symptoms. He was discharged in stable condition Undiagnosed new problem with uncertain prognosis? @ -No Drug Therapy requiring intensive monitoring for toxicity (Heparin, Nitro, Insulin, Cardizem)? @ -No Were any procedures done? @ -No Diagnosis/symptom? @ -Acute chest pain Acute, or Chronic, or Acute on Chronic? @ -Acute Uncomplicated (without systemic symptoms) or Complicated (systemic symptoms)? @ -Complicated Side effects of treatment? @ -No Exacerbation, Progression, or Severe Exacerbation? @ -No Poses a threat to life or bodily function? How? (Chest pain, [place], [place], pneumonia, PE, COPD, DKA, ARF, appy, cholecystitis, CVA, Diverticulitis, Homicidal, Suicidal, threat to staff... and all critical care pts) @ -No Disposition Clinical Impression: Chest pain Disposition: HOME SELF-CARE Condition: Stable Instructions (If sedation given, give patient instructions): Chest Pain (ED) Additional Instructions: Your labs were within normal limits. Please follow-up with your primary care doctor and discuss getting repeat cardiac testing. Return for any new or wo rsening symptoms Is patient prescribed a controlled substance at d/c from ED?: No Referrals: Italo Mccray Jr, [Primary Care Provider] - 1-2 days Time of Disposition: 13:59
--- NOTE | 2025-04-21 10:27 | XR ---
EXAMINATION TYPE: XR chest 2V DATE OF EXAM: 04/21/2025 10:03 AM COMPARISON: 11/16/2015 CLINICAL INDICATION: Male, 54 years old with history of Chest Pain, TECHNIQUE: XR chest 2V view(s) obtained. FINDINGS: The heart size is normal. The pulmonary vasculature is normal. The lungs are clear. IMPRESSION: 1. No acute pulmonary process. [facility], , 04/21/2025 10:25 AM
[2025-04-21 11:16] LABS: Basophils # (A) 0.05 10*3/uL (0.00-0.10); Basophils % (A) 0.7 %; Eosinophils # (A) 0.19 10*3/uL (0.04-0.35); Eosinophils % (A) 2.5 %; HCT 41.9 % (39.6-50.0); HGB 14.4 g/dL (13.0-17.0); Lymphocytes # (A) 2.39 10*3/uL (0.90-5.00); Lymphocytes % (A) 31.5 %; MCH 30.2 pg (27.0-32.0); MCHC 34.4 g/dL (32.0-37.0); MCV 87.8 fL (80.0-97.0); Monocytes # (A) 0.62 10*3/uL (0.20-1.00); Monocytes % (A) 8.2 %; Neutrophils # (A) 4.31 10*3/uL (1.80-7.70); Neutrophils % (A) 56.7 %; Platelet Count 284 10*3/uL (140-440); RBC 4.77 10*6/uL (4.40-5.60); RDW 13.2 % (11.5-14.5); WBC 7.59 10*3/uL (4.50-10.00)
[2025-04-21 11:20] LABS: INR 0.9 (<1.2); Partial Thromboplastin Time 27.2 sec (22.0-30.0); Prothrombin Time 10.6 sec (10.0-12.5)
[2025-04-21 11:23] LABS: ALT 28 U/L (4-49); AST 40 U/L (17-59); African American GFR (CKD) 80 (>60 ml/min/1.73 sqM); Albumin 4.3 g/dL (3.5-5.0); Alkaline Phosphatase 71 U/L (38-126); Anion Gap 8 mmol/L; Blood Urea Nitrogen 29 mg/dL (9-20); Calcium 9.7 mg/dL (8.4-10.2); Carbon Dioxide 24 mmol/L (22-30); Chloride 102 mmol/L (98-107); Glucose 100 mg/dL (74-99); Magnesium 1.9 mg/dL (1.6-2.3); Non-African American GFR(CKD) 69 (>60 ml/min/1.73 sqM); Potassium 4.3 mmol/L (3.5-5.1); Sodium 134 mmol/L (137-145); Total Protein 7.2 g/dL (6.3-8.2)
[2025-04-21 11:32] LABS: NT-Pro-B-Type Natriuretic Pept 120 pg/mL
[2025-04-21 14:42] VITALS: BP 106/69; PULSE 72
== END 2025-04-21 14:42 | disposition home or self-care (01) ==
LOC: EC 09:30
DX: R07.9 Chest pain, unspecified (principal); I10 Essential (primary) hypertension; F17.200 Nicotine dependence, unspecified, uncomplicated; Z88.1 Allergy status to other antibiotic agents; Z88.8 Allergy status to other drugs, medicaments and biological substances
CPT/HCPCS: 36415; 71046; 80053; 83735; 83880; 84484; 85025; 85379; 85610; 85730; 93005; 99285

== ENCOUNTER 2025-04-21 19:05 | Observation (INO) | payer BC ==
[2025-04-21] MEDS: SODIUM CHLORIDE 0.9% 1,000 ML IV ONE (19:40)
[2025-04-21 19:49] LABS: Basophils # (A) 0.05 10*3/uL (0.00-0.10); Basophils % (A) 0.6 %; Eosinophils # (A) 0.38 10*3/uL (0.04-0.35); Eosinophils % (A) 4.4 %; HCT 39.3 % (39.6-50.0); HGB 13.9 g/dL (13.0-17.0); Lymphocytes # (A) 2.50 10*3/uL (0.90-5.00); Lymphocytes % (A) 28.9 %; MCH 31.0 pg (27.0-32.0); MCHC 35.4 g/dL (32.0-37.0); MCV 87.7 fL (80.0-97.0); Monocytes # (A) 0.61 10*3/uL (0.20-1.00); Monocytes % (A) 7.0 %; Neutrophils # (A) 5.10 10*3/uL (1.80-7.70); Neutrophils % (A) 58.9 %; Platelet Count 303 10*3/uL (140-440); RBC 4.48 10*6/uL (4.40-5.60); RDW 13.3 % (11.5-14.5); WBC 8.66 10*3/uL (4.50-10.00)
[2025-04-21 20:04] LABS: ALT 24 U/L (4-49); AST 31 U/L (17-59); African American GFR (CKD) 82 (>60 ml/min/1.73 sqM); Albumin 3.9 g/dL (3.5-5.0); Alkaline Phosphatase 60 U/L (38-126); Anion Gap 10 mmol/L; Blood Urea Nitrogen 33 mg/dL (9-20); Calcium 9.3 mg/dL (8.4-10.2); Carbon Dioxide 25 mmol/L (22-30); Chloride 103 mmol/L (98-107); Glucose 97 mg/dL (74-99); INR 1.0 (<1.2); Magnesium 2.0 mg/dL (1.6-2.3); Non-African American GFR(CKD) 71 (>60 ml/min/1.73 sqM); Partial Thromboplastin Time 26.2 sec (22.0-30.0); Potassium 3.9 mmol/L (3.5-5.1); Prothrombin Time 10.9 sec (10.0-12.5); Sodium 138 mmol/L (137-145); Total Protein 6.8 g/dL (6.3-8.2)
--- NOTE | 2025-04-21 20:14 | ED ---
General Adult HPI - General Chief complaint: Chest Pain Stated complaint: Chest Pain Time Seen by Provider: 04/21/25 19:12 Source: patient, RN notes reviewed, old records reviewed Mode of arrival: ambulatory Limitations: no limitations - History of Present Illness Initial comments: 54-year-old presenting for reevaluation of upper chest tightness radiating to the left arm. Patient was seen in the emergency department earlier today had EKG, chest x-ray, laboratory testing including 3-hour troponin. Workup was negative at that time and the patient was discharged. Patient returns this evening with persistent tightness in the upper chest. He had taken his blood pressure at home and noted that the systolic was in the 80s and he has felt somewhat lightheaded. He has no prior history of cardiac disease. He denies fever. Denies dyspnea. Denies lower extremity pain or swelling. - Related Data Home Medications Medication Instructions Recorded Confirmed Losartan Potassium 100 mg PO DAILY 10/27/24 04/21/25 hydroCHLOROthiazide [Hydrodiuril] 25 mg PO DAILY 10/27/24 04/21/25 amLODIPine [Norvasc] 5 mg PO DAILY 04/21/25 04/21/25 Allergies Allergy/AdvReac Type Severity Reaction Status Date / Time bacitracin AdvReac BLISTERS, Verified 04/21/25 19:17 [From Neosporin EATS SKIN ([id number])] neomycin AdvReac BLISTERS, Verified 04/21/25 19:17 [From Neosporin EATS SKIN ([id number])] polymyxin B AdvReac BLISTERS, Verified 04/21/25 19:17 [From Neosporin EATS SKIN ([id number])] Review of Systems ROS Statement: Those systems with pertinent positive or pertinent negative responses have been documented in the HPI. ROS Other: All systems not noted in ROS Statement are negative. Past Medical History Past Medical History: GERD/Reflux, Hypertension, Osteoarthritis (OA) Additional Past Medical History / Comment(s): exposed to COVID person on 08/18/21-had 3 neg COVID tests since then, denies symptoms, did have mask on and social distance History of Any Multi-Drug Resistant Organisms: None Reported Past Surgical History: Joint Replacement, Orthopedic Surgery, Tonsillectomy Additional Past Surgical History / Comment(s): colonoscopies, Lt. rotator cuff repair, Rt. SALUD, bilat. knee arthroscopies Past Anesthesia/Blood Transfusion Reactions: No Reported Reaction Past Psychological History: No Psychological Hx Reported Smoking Status: Current every day smoker Past Alcohol Use History: Occasional Past Drug Use History: Marijuana - Past Family History Mother Family Medical History: No Reported History General Exam Limitations: no limitations General appearance: alert, in no apparent distress Head exam: Present: atraumatic, normocephalic Eye exam: Present: normal appearance, PERRL ENT exam: Present: normal exam Respiratory exam: Present: normal lung sounds bilaterally. Absent: respiratory distress, wheezes Cardiovascular Exam: Present: regular rate, normal rhythm GI/Abdominal exam: Present: soft. Absent: distended, tenderness Extremities exam: Present: normal inspection, normal capillary refill. Absent: pedal edema, calf tenderness Neurological exam: Present: alert, oriented X3, CN II-XII intact. Absent: motor sensory deficit Psychiatric exam: Present: normal affect, normal mood Skin exam: Present: warm, dry, intact Course Vital Signs 04/21/25 04/21/25 04/21/25 19:13 19:41 20:58 Temperature 98.2 F Pulse Rate 79 71 Respiratory 18 16 18 Rate Blood Pressure 122/61 119/54 O2 Sat by Pulse 97 96 97 Oximetry Medical Decision Making - Medical Decision Making Was pt. sent in by a medical professional or institution (, PA, KEYCASE ASSEMBLER, urgent care, hospital, or intermediate...) When possible be specific @Sent in by Dr. Mccray for evaluation Did you speak to anyone other than the patient for history (EMS, parent, family, police, friend...)? What history was obtained from this source @ -No Did you review nursing and triage notes (agree or disagree)? Why? @ -I reviewed and agree with nursing and triage notes Were old charts reviewed (outside hosp., previous admission, EMS record, old EKG, old radiological studies, urgent care reports/EKG's, intermediate records)? Report findings @ -No old charts were reviewed Differential Chest Pain: Stable Angina, Unstable Angina, STEMI, NSTEMI Aortic Dissection, Pneumothorax, Musculoskeletal, Esophageal Spasm GERD, Cholecystitis, Pancreatitis, Zoster, this is not meant to be an all-inclusive list. EKG interpreted by me (3pts min.). @ -As above X-rays interpreted by me (1pt min.). @ -Sinus rhythm rate of 72, FL interval 153, QRS duration 81, QTc 388, no ST segment changes. CT interpreted by me (1pt min.). @ -None done U/S interpreted by me (1pt. min.). @ -None done What testing was considered but not performed or refused? (CT, X-rays, U/S, labs)? Why? @ -None What meds were considered but not given or refused? Why? @ -None Did you discuss the management of the patient with other professionals (professionals i.e. DrBerkley, PA, KEYCASE ASSEMBLER, lab, RT, psych nurse, social worker masters, city solicitor, teacher, morals squad police officer, case operator)? Give summary @ -Case discussed with Dr. Smith who will admit Was smoking cessation discussed for >3mins.? @ -No Was critical care preformed (if so, how long)? @ -No Were there social determinants of health that impacted care today? How? (Homelessness, low income, unemployed, alcoholism, drug addiction, transportation, low edu. Level, literacy, decrease access to med. care, assisted, rehab)? @ -No Was there de-escalation of care discussed even if they declined (Discuss DNR or withdrawal of care, Hospice)? DNR status @ -No What co-morbidities impacted this encounter? (DM, HTN, Smoking, COPD, CAD, Cancer, CVA, ARF, Chemo, Hep., AIDS, mental health diagnosis, sleep apnea, morbid obesity)? @ -None Was patient admitted / discharged? Hospital course, mention meds given and route, prescriptions, significant lab abnormalities, going to OR and other pertinent info. @ 54-year-old male presenting for evaluation of left upper chest tightness and pain. Patient had been seen earlier in the day and workup was negative at that time. Presents with persistent pain as well as low blood pressure. Blood pressure is normal in the emergency department. EKG is sinus without ST segment elevation. Laboratory test including CBC, CMP and troponin are negative. Given the persistent nature of the symptoms he will be observed overnight with serial cardiac enzymes, telemetry, echocardiogram and cardiology consultation. Undiagnosed new problem with uncertain prognosis? @ -No Drug Therapy requiring intensive monitoring for toxicity (Heparin, Nitro, Insulin, Cardizem)? @ -No Were any procedures done? @ -No Diagnosis/symptom? @ -Chest pain rule out Acute, or Chronic, or Acute on Chronic? @ -[Acute Uncomplicated (without systemic symptoms) or Complicated (systemic symptoms)? @ -Default Side effects of treatment? @ -No Exacerbation, Progression, or Severe Exacerbation? @ -No Poses a threat to life or bodily function? How? (Chest pain, [place], [place], pneumonia, PE, COPD, DKA, ARF, appy, cholecystitis, CVA, Diverticulitis, Homicidal, Suicidal, threat to staff... and all critical care pts) @Yes, ACS, cardiac arrhythmia, - Lab Data Result diagrams: 04/21/25 19:36 04/21/25 19:36 Lab Results 04/21/25 04/21/25 04/21/25 Range/Units 19:36 19:36 19:36 WBC 8.66 (4.50-10.00) 10*3/uL RBC 4.48 (4.40-5.60) 10*6/uL Hgb 13.9 (13.0-17.0) g/dL Hct 39.3 L (39.6-50.0) % MCV 87.7 (80.0-97.0) fL MCH 31.0 (27.0-32.0) pg MCHC 35.4 (32.0-37.0) g/dL Plt Count 303 (140-440) 10*3/uL MPV 9.8 (9.5-12.2) fL Immature Gran % (Auto) 0.2 % Neutrophils % 58.9 % Lymphocytes % 28.9 % Monocytes % 7.0 % Eosinophils % 4.4 % Basophils % 0.6 % Immature Gran # 0.02 (0.00-0.04) 10*3/uL Neutrophils # 5.10 (1.80-7.70) 10*3/uL Lymphocytes # 2.50 (0.90-5.00) 10*3/uL Monocytes # 0.61 (0.20-1.00) 10*3/uL Eosinophils # 0.38 H (0.04-0.35) 10*3/uL Basophils # 0.05 (0.00-0.10) 10*3/uL PT 10.9 (10.0-12.5) sec INR 1.0 (<1.2) APTT 26.2 (22.0-30.0) sec D-Dimer 0.32 (<0.60) mg/L FEU Sodium 138 (137-145) mmol/L Potassium 3.9 (3.5-5.1) mmol/L Chloride 103 (98-107) mmol/L Carbon Dioxide 25 (22-30) mmol/L Anion Gap 10 mmol/L BUN 33 H (9-20) mg/dL Creatinine 1.15 (0.66-1.25) mg/dL Est GFR (CKD-EPI)AfAm 82 (>60 ml/min/1.73 sqM) Est GFR (CKD-EPI)NonAf 71 (>60 ml/min/1.73 sqM) Glucose 97 (74-99) mg/dL Calcium 9.3 (8.4-10.2) mg/dL Magnesium 2.0 (1.6-2.3) mg/dL Total Bilirubin 1.6 H (0.2-1.3) mg/dL AST 31 (17-59) U/L ALT 24 (4-49) U/L Alkaline Phosphatase 60 (38-126) U/L Troponin I (0.000-0.034) ng/mL Total Protein 6.8 (6.3-8.2) g/dL Albumin 3.9 (3.5-5.0) g/dL // Range/Units 19:36 WBC (4.50-10.00) 10*3/uL RBC (4.40-5.60) 10*6/uL Hgb (13.0-17.0) g/dL Hct (39.6-50.0) % MCV (80.0-97.0) fL MCH (27.0-32.0) pg MCHC (32.0-37.0) g/dL Plt Count (140-440) 10*3/uL MPV (9.5-12.2) fL Immature Gran % (Auto) % Neutrophils % % Lymphocytes % % Monocytes % % Eosinophils % % Basophils % % Immature Gran # (0.00-0.04) 10*3/uL Neutrophils # (1.80-7.70) 10*3/uL Lymphocytes # (0.90-5.00) 10*3/uL Monocytes # (0.20-1.00) 10*3/uL Eosinophils # (0.04-0.35) 10*3/uL Basophils # (0.00-0.10) 10*3/uL PT (10.0-12.5) sec INR (<1.2) APTT (22.0-30.0) sec D-Dimer (<0.60) mg/L FEU Sodium (137-145) mmol/L Potassium (3.5-5.1) mmol/L Chloride (98-107) mmol/L Carbon Dioxide (22-30) mmol/L Anion Gap mmol/L BUN (9-20) mg/dL Creatinine (0.66-1.25) mg/dL Est GFR (CKD-EPI)AfAm (>60 ml/min/1.73 sqM) Est GFR (CKD-EPI)NonAf (>60 ml/min/1.73 sqM) Glucose (74-99) mg/dL Calcium (8.4-10.2) mg/dL Magnesium (1.6-2.3) mg/dL Total Bilirubin (0.2-1.3) mg/dL AST (17-59) U/L ALT (4-49) U/L Alkaline Phosphatase (38-126) U/L Troponin I <0.012 (0.000-0.034) ng/mL Total Protein (6.3-8.2) g/dL Albumin (3.5-5.0) g/dL Disposition Clinical Impression: Chest pain Disposition: ADMITTED IP TO THIS [facility] Condition: Stable Is patient prescribed a controlled substance at d/c from ED?: No Referrals: Italo Mccray Jr, [Primary Care Provider] - 1-2 days Time of Disposition: 21:04
[2025-04-21] MEDS: ASPIRIN 325 MG TAB PO STA ×2 (20:30→21:08)
[2025-04-21] MEDS ORDERED: NALOXONE 0.4 MG/ML 1 ML VIAL IV PRN (21:00)
[2025-04-21] MEDS: SODIUM CHLORIDE 0.9% 1,000 ML IV SCH (21:44)
[2025-04-22 02:00] VITALS: RESP 16
[2025-04-22 08:56] VITALS: TEMP 97.8
[2025-04-22] MEDS: NICOTINE 21MG/24HR PATCH TRANSDERM SCH (09:16)
[2025-04-22] MEDS: PANTOPRAZOLE 40 MG/10 ML VIAL IVP SCH (09:35)
--- NOTE | 2025-04-22 10:44 | P.CRDCN ---
History of Present Illness Consult date: 04/22/25 (.) Consult reason: chest pain History of present illness: This is a 54-year-old male patient of Dr. Tamayo with past medical history of hypertension, hyperlipidemia, mild to moderate alcohol use, tobacco use and dependence, family history of hypertension. We have been asked to evaluate the patient for chest pain. Patient states that he had sudden onset at 7 AM yesterday on his way to work feeling lightheaded like he was going to pass out, his vision was fuzzy. He also had pain in the left arm and his hand was tingling and he had tightness in his shoulder. He states he had this 1 other time about a month ago and resolved on its own. He denies history of stroke or diabetes. He does state that his PCP added a medication 1 month ago for high blood pressure. Regarding smoking, he is normally a smoker 1 pack/day recently cut down to half a pack per day. He uses marijuana on a daily basis. Patient drinks alcohol couple times per week. Blood pressure 148/72, heart rate 60, pulse ox 98% on room air. He states that all of his symptoms have resolved at the time of this evaluation. -EKG: Sinus rhythm with no acute ST-T wave changes. -Chest x-ray: No acute process. -Laboratory studies: Troponin negative x 3. 0.9, creatinine 1.15, BUN. -Home cardiac medications: Amlodipine 5 mg daily, hydrochlorothiazide 25 mg daily, losartan 100 mg daily. -Treadmill exercise stress test performed in the office on 07/08/2024 revealed good exercise tolerance. No symptoms typical of angina. No dysrhythmias were noted. Normal electrocardiographic response to exercise with no evidence of stress-induced ischemia. -Echocardiogram performed in the office on 07/10/2024 revealed EF of 55 to 60%, grade 1 diastolic dysfunction. Mild ventricular hypertrophy. Trace mitral regurgitation. Mild tricuspid regurgitation. Review Of Systems: At the time of my exam: CONSTITUTIONAL: Denies fever or chills. HEENT: Denies blurred vision, vision changes, or eye pain. Denies hemoptysis CARDIOVASCULAR: Denies chest pain. Denies orthopnea. Denies PND. Denies palpitations RESPIRATORY: Denies shortness of breath. GASTROINTESTINAL: Denies abdominal pain. Denies nausea or vomiting. HEMATOLOGIC: Denies bleeding disorders. GENITOURINARY: Denies any blood in urine. SKIN: Denies puritis. Denies rash. Physical examination: Gen: This is a 54-year-old male in no acute distress. VS: reviewed HEENT: Head is atraumatic, normocephalic. Pupils equal, round. Sclerae is anicteric. NECK: Supple. No JVD. LUNGS: Clear to auscultation. No wheezes or rhonchi. No intercostal retractions. HEART: Regular rate and rhythm. No murmur. ABDOMEN: Soft No tenderness. EXTREMITIES: No pedal edema. No calf tenderness. NEUROLOGICAL: Patient is awake, alert and oriented x3. Assessment: Atypical chest pain, acute coronary syndrome ruled out Hypertension Hyperlipidemia Tobacco use and dependence Alcohol use couple times per week Daily marijuana use Plan: Resume patient's home cardiac medications Schedule patient for stress echocardiogram today N.p.o. Obtain carotid duplex Obtain 2-D echocardiogram and Doppler study to assess cardiac structure and fu nction If above testing is unremarkable, patient is cleared for discharge Smoking cessation. Patient is on a nicotine patch and will be provided the [place] quit line information at discharge. Thank you kindly for this consultation. Nurse practitioner note has been reviewed, I agree with documented findings and plan of care. Patient was seen and examined. Past Medical History Past Medical History: GERD/Reflux, Hypertension, Osteoarthritis (OA) Additional Past Medical History / Comment(s): exposed to COVID person on 08/18/21-had 3 neg COVID tests since then, denies symptoms, did have mask on and social distance History of Any Multi-Drug Resistant Organisms: None Reported Past Surgical History: Joint Replacement, Orthopedic Surgery, Tonsillectomy Additional Past Surgical History / Comment(s): colonoscopies, Lt. rotator cuff repair, Rt. SALUD, bilat. knee arthroscopies Past Anesthesia/Blood Transfusion Reactions: No Reported Reaction Past Psychological History: No Psychological Hx Reported Smoking Status: Current every day smoker Past Alcohol Use History: Occasional Additional Past Alcohol Use History / Comment(s): Smokes < 1 PPD since 13 yrs old. Past Drug Use History: Marijuana Additional Drug Use History / Comment(s): Marijuana use twice daily. Aware no use 24 hrs prior to procedure. - Past Family History Mother Family Medical History: No Reported History Medications and Allergies Home Medications Medication Instructions Recorded Confirmed Type Losartan Potassium 100 mg PO DAILY 10/27/24 04/21/25 History hydroCHLOROthiazide [Hydrodiuril] 25 mg PO DAILY 10/27/24 04/21/25 History amLODIPine [Norvasc] 5 mg PO DAILY 04/21/25 04/21/25 History Allergies Allergy/AdvReac Type Severity Reaction Status Date / Time bacitracin AdvReac BLISTERS, Verified 04/21/25 19:17 [From Neosporin EATS SKIN ([id number])] neomycin AdvReac BLISTERS, Verified 04/21/25 19:17 [From Neosporin EATS SKIN ([id number])] polymyxin B AdvReac BLISTERS, Verified 04/21/25 19:17 [From Neosporin EATS SKIN ([id number])] Physical Exam Vitals: Vital Signs Temp Pulse Pulse Resp BP BP Pulse Ox 04/22/25 07:00 97.8 F 68 16 148/72 98 04/22/25 01:29 98.0 F 71 16 126/73 95 04/21/25 23:14 97.9 F 61 17 117/70 94 L 04/21/25 22:59 16 04/21/25 22:50 67 16 113/79 97 04/21/25 21:50 65 18 105/66 96 04/21/25 20:58 18 97 04/21/25 19:41 71 16 119/54 96 04/21/25 19:13 98.2 F 79 18 122/61 97 Intake and Output 04/21/25 04/22/25 04/22/25 22:59 06:59 14:59 Other: Weight 104.326 kg Results 04/21/25 19:36 04/21/25 19:36 Cardiac Enzymes 04/21/25 04/21/25 04/21/25 Range/Units 19:36 19:36 21:44 AST 31 (17-59) U/L Troponin I <0.012 <0.012 (0.000-0.034) ng/mL 04/22/25 Range/Units 04:12 AST (17-59) U/L Troponin I <0.012 (0.000-0.034) ng/mL Coagulation 04/21/25 Range/Units 19:36 PT 10.9 (10.0-12.5) sec APTT 26.2 (22.0-30.0) sec CBC 04/21/25 Range/Units 19:36 WBC 8.66 (4.50-10.00) 10*3/uL RBC 4.48 (4.40-5.60) 10*6/uL Hgb 13.9 (13.0-17.0) g/dL Hct 39.3 L (39.6-50.0) % Plt Count 303 (140-440) 10*3/uL Comprehensive Metabolic Panel 04/21/25 Range/Units 19:36 Sodium 138 (137-145) mmol/L Potassium 3.9 (3.5-5.1) mmol/L Chloride 103 (98-107) mmol/L Carbon Dioxide 25 (22-30) mmol/L BUN 33 H (9-20) mg/dL Creatinine 1.15 (0.66-1.25) mg/dL Glucose 97 (74-99) mg/dL Calcium 9.3 (8.4-10.2) mg/dL AST 31 (17-59) U/L ALT 24 (4-49) U/L Alkaline Phosphatase 60 (38-126) U/L Total Protein 6.8 (6.3-8.2) g/dL Albumin 3.9 (3.5-5.0) g/dL Current Medications Generic Name Dose Route Start Last Admin Trade Name Freq PRN Reason Stop Dose Admin Sodium Chloride 1,000 mls @ 75 mls/hr 04/21/25 21:00 04/21/25 21:44 Saline 0.9% IV 75 mls/hr .[id number] Administration Naloxone HCl 0.2 mg 04/21/25 21:00 Naloxone 0.4 Mg/Ml 1 Ml Vial IV Q2M PRN Opioid Reversal Nicotine 1 patch 04/22/25 09:00 Nicotine 21mg/24hr Patch TRANSDERM DAILY IBRAHIMA Pantoprazole Sodium 40 mg 04/22/25 09:00 Pantoprazole 40 Mg/10 Ml Vial IVP DAILY IBRAHIMA Intake and Output 04/21/25 04/22/25 04/22/25 22:59 06:59 14:59 Other: Weight 104.326 kg 04/21/25 19:36 04/21/25 19:36
--- NOTE | 2025-04-22 10:51 | US ---
EXAMINATION TYPE: US carotid duplex BILAT DATE OF EXAM: 04/22/2025 COMPARISON: NONE CLINICAL INDICATION: Male, 54 years old with history of dizziness; Syncopal episode, patient is a smo ker. Additional History: .... TECHNIQUE: Grayscale, color Doppler and spectral Doppler evaluation of the bilateral carotid systems and vertebral arteries. Indirect Doppler criteria was utilized. FINDINGS: EXAM MEASUREMENTS: RIGHT: Peak Systolic Velocity (PSV) cm/sec ----- Right CCA: 61 ----- Right ICA: 78 ----- Right ECA: 60 ICA/CCA ratio: 1.3 RIGHT: End Diastole cm/sec ----- Right CCA: 18 ----- Right ICA: 33 ----- Right ECA: 29 LEFT: Peak Systolic Velocity (PSV) cm/sec ----- Left CCA: 68 ----- Left ICA: 74 ----- Left ECA: 93 ICA/CCA ratio: 1.1 LEFT: End Diastole cm/sec ----- Left CCA: 28 ----- Left ICA: 30 ----- Left ECA: 20 VERTEBRALS (direction of flow): Right Vertebral: Antegrade Left Vertebral: Antegrade Rhythm: Normal NEWS REEL CAMERAMAN NOTES: Plaque seen bilateral CCA bulbs, no intimal thickening or elevated velocities seen . Color Doppler imaging shows patency with blood flow throughout the carotid artery. Spectral waveforms are within normal limits. IMPRESSION: Mild atheromatous plaquing without significant flow-limiting stenosis based on velocities. Criteria for Assigning % of Stenosis / Diameter reduction (Estimation based on the indirect measurements of the internal carotid artery velocities (ICA PSV). 1. Normal (no stenosis)=ICA PSV < 180 cm/s: ratio < 2.0: ICA EDV<40 cm/s. 2. Less than 50% stenosis=ICA PSV < 180 cm/s: ratio < 2.0: ICA EDV<40 cm/s. 3. 50 to 69% stenosis=ICA PSV of 180 to 230 cm/s: ration 2.0 ? 4.0: ICA EDV 40-100 cm/s. PSV 125-180 cm/sec and ICA/CCA PSV Ratio ? 2.0 is also consistent with 50-69% stenosis 4. Greater than 70% stenosis to near occlusion= ICA PSV > 230 cm/s: ratio > 4.0: ICA EDV > 100 cm/s. 5. Near occlusion= ICA PSV velocities may be low or undetectable: variable ratio and ICA EDV. 6. Total occlusion=unable to detect flow. [facility], , 04/22/2025 10:49 AM
--- NOTE | 2025-04-22 10:51 | P.HPIM ---
History of Present Illness H&P Date: 04/22/25 Chief Complaint: Left shoulder tightness, left hand numbness, hypotension History and Physical and Discharge Summary: This is a 54-year-old gentleman with past medical history significant for hypertension, nicotine dependence, alcohol and marijuana use, osteoarthritis- recent left hip arthroplasty 11/23, obesity, strong family history of CAD-mother with hypertension and diabetes, brother sustained an OH at age 40 to 50 years of age and multiple other medical issues presented to the ER yesterday morning with complaints of nonradiating left shoulder tightness, left hand numbness accompanied by lightheadedness, shortness of breath, reoccurring over the last month, lasting for few minutes, worsened with exertion, spontaneously resolved. Patient works with concrete daily, heavy lifting for many years. reports he was diagnosed with hypertension last year, placed on Norvasc and Cozaar. Continued having uncontrolled hypertension with hydrochlorothiazide added little bit over a month ago. On his initial visit to the ER, cardiac workup obtained including negative troponins and patient was discharged home. After arriving home, symptoms reoccurred, blood pressure obtained reported as low-he is unsure ,thought his systolic blood pressure in the 80s, returned to the ER. Troponins remain negative, EKG reporting sinus rhythm. By her chest x-ray reported nonacute. Labs unremarkable with exception of mild increase in creatinine to 1.15. Evaluated by cardiology and patient is scheduled for stress test. Patient reports he had a negative stress test prior to his left hip arthroplasty in October 2024. Vital signs stable on admission, currently asymptomatic. Review of Systems ROS Statement: Those systems with pertinent positive or pertinent negative responses have been documented in the HPI. ROS Other: All systems not noted in ROS Statement are negative. Past Medical History Past Medical History: GERD/Reflux, Hypertension, Osteoarthritis (OA) Additional Past Medical History / Comment(s): exposed to COVID person on 08/18/21-had 3 neg COVID tests since then, denies symptoms, did have mask on and social distance History of Any Multi-Drug Resistant Organisms: None Reported Past Surgical History: Joint Replacement, Orthopedic Surgery, Tonsillectomy Additional Past Surgical History / Comment(s): colonoscopies, Lt. rotator cuff repair, Rt. SALUD, bilat. knee arthroscopies Past Anesthesia/Blood Transfusion Reactions: No Reported Reaction Past Psychological History: No Psychological Hx Reported Smoking Status: Current every day smoker Past Alcohol Use History: Occasional Additional Past Alcohol Use History / Comment(s): Smokes < 1 PPD since 13 yrs old. Past Drug Use History: Marijuana Additional Drug Use History / Comment(s): Marijuana use twice daily. Aware no use 24 hrs prior to procedure. - Past Family History Mother Family Medical History: No Reported History Medications and Allergies Home Medications Medication Instructions Recorded Confirmed Type Losartan Potassium 100 mg PO DAILY 10/27/24 04/21/25 History amLODIPine [Norvasc] 5 mg PO DAILY 04/21/25 04/21/25 History Allergies Allergy/AdvReac Type Severity Reaction Status Date / Time bacitracin AdvReac BLISTERS, Verified 04/21/25 19:17 [From Neosporin EATS SKIN ([id number])] neomycin AdvReac BLISTERS, Verified 04/21/25 19:17 [From Neosporin EATS SKIN ([id number])] polymyxin B AdvReac BLISTERS, Verified 04/21/25 19:17 [From Neosporin EATS SKIN ([id number])] Physical Exam Vitals: Vital Signs Temp Pulse Pulse Resp BP BP Pulse Ox 04/22/25 07:00 97.8 F 68 16 148/72 98 04/22/25 01:29 98.0 F 71 16 126/73 95 04/21/25 23:14 97.9 F 61 17 117/70 94 L 04/21/25 22:59 16 04/21/25 22:50 67 16 113/79 97 04/21/25 21:50 65 18 105/66 96 04/21/25 20:58 18 97 04/21/25 19:41 71 16 119/54 96 04/21/25 19:13 98.2 F 79 18 122/61 97 Intake and Output 04/21/25 04/22/25 04/22/25 22:59 06:59 14:59 Other: Weight 104.326 kg PHYSICAL EXAM: VITAL SIGNS: [Reviewed] GENERAL: Pleasant, well-nourished, middle-aged male, alert and oriented x 3, sitting up in bed, no acute distress. HEENT: Normocephalic, atraumatic, conjunctivae normal. eyes normal. Sclerae anicteric. NECK: Supple, no JVD. No LNs CARDIOVASCULAR: S1, S2 regular. No murmur RESPIRATION: Unlabored, equal air entry, clear to auscultation. ABDOMEN: Soft, nondistended, nontender . No guarding. no masses palpable. +BS. LEGS: No edema. no swelling. No calf tenderness, peripheral pulses intact. NERVOUS SYSTEM: Cranial N 2-12 grossly normal. No focal deficits. Strength and sensation grossly intact. Skin: Warm and dry, no rash Results CBC & Chem 7: 04/21/25 19:36 04/21/25 19:36 Labs: Abnormal Lab Results - Last 24 Hours (Table) 04/21/25 04/21/25 Range/Units 19:36 19:36 Hct 39.3 L (39.6-50.0) % Eosinophils # 0.38 H (0.04-0.35) 10*3/uL BUN 33 H (9-20) mg/dL Total Bilirubin 1.6 H (0.2-1.3) mg/dL Assessment and Plan Assessment: Left shoulder tightness nonradiating accompanied by left hand numbness, tingling, lightheadedness, exertional shortness of breath with reported hypo tension. Troponins negative x 3. Possible underlying carpal tunnel, to be further addressed outpatient. Hypertension, labile with hydrochlorothiazide newly initiated and home med regimen approximately 1 month ago Acute kidney injury, mild, possibly med induced secondary to hydrochlorothiazide, possibly secondary to dehydration had been working outside in excessive heat yesterday above nearly 100 degrees. Nicotine dependent Obesity, BMI 33 Osteoarthritis, recent left hip arthroplasty 11/23 Gastroesophageal reflux disease Marijuana use Alcohol use Plan: Continue on current medication regimen, monitoring and symptomatic treatment. Carotid Doppler reporting no hemodynamic significant stenosis. maintain telemetry monitoring. Evaluated by cardiology, 2D echo, stress echo ordered. Hemoglobin A1c pending. Smoking cessation reinforced with nicotine patch ordered. Patient will be discharged home today pending testing results, final DC recommendations and clearance by cardiology. Orthostatic vital signs pending. PCP recommending holding hydrochlorothiazide, reevaluate at follow-up visit in clinic. Discharge Medication List Losartan Potassium 100 mg PO DAILY 10/27/24 [History] amLODIPine [Norvasc] 5 mg PO DAILY 04/21/25 [History] The impression and plan of care has been dictated as directed. : I performed a history and examination of this patient, discussed the same with the dictator. I agree with the dictator's note ,documented as a scribe. Any additional findings or plans will be noted.
[2025-04-22] MEDS: amLODIPine 5 MG TAB PO SCH (13:32)
[2025-04-22] MEDS: LOSARTAN 50 MG TAB PO SCH (13:32)
[2025-04-22] MEDS: hydroCHLOROthiazide 25 MG TAB PO SCH (13:33)
[2025-04-22 14:31] VITALS: BP 118/77; PULSE 66
[2025-04-22 19:00] LABS: Cholesterol 153.00 mg/dL (0.00-200.00); HDL Cholesterol 41.20 mg/dL (40.00-60.00); LDL Cholesterol,Calculated 92.8 mg/dL (0.0-131.0); Triglycerides 94.80 mg/dL (0.00-149.00); VLDL Calculation 18.96 mg/dL (5.00-40.00)
--- NOTE | 2025-04-22 20:09 | CA ---
Stress Echo Report Nick Carlisle Age: 54 Gender: M : 1970 Exam Date: 04/22/2025 12:09 Exam Location: [facility] Ht (in): 70 Wt (lb): 230 Ordering Physician: Adri Izaguirre Referring Physician: Zina ZHONG Archeology Faculty Member: ELISE, Technologist Procedure CPT: Indication: Chest Pain ICD-9 Codes: Rhythm: Patient History: CP, MARIS, HTN, CURRENT TOB, FAMILY HX. Cardiac Medications: SEE CHART,,,,, Medications in past 24 hours: Contrast: Stress Results Protocol: Walter Total dose(mL): Exercise Duration (min:sec): Max ST Depression (mm): Angina Score: Hanna Score: METS: 12.1 Resting HR: 72 Resting BP: 125 / 84 Peak HR: 144 Peak BP: 167 / 63 Max Predicted HR: 164 88 % Max Predicted HR Target HR: 139 Double Product: 11284 Stress Summary: BP Response: Reason for Termination: MAX EXERTION/TARGET HR Cardiac Symptoms: NO SYMPTOMS ECG Analysis Resting ECG: Normal sinus rhythm Stress ECG: No evidence of ischemia by ST segment analysis Arrhythmia: No sustained arrhythmias or ectopic beats Echo Analysis Resting Echo: No obvious regional wall motion abnormality at rest Peak Echo Analysis: No obvious regional wall motion abnormality at peak exercise MEASUREMENTS (Male/Female) Normal Values CONCLUSIONS Good exercise tolerance for age achieving 12.1 METS Normal hemodynamic and clinical response to treadmill exercise Nonischemic ECG and echocardiographic response to treadmill exercise Overall low probability for severe obstructive CAD Dr Varghese Bradley (Electronically Signed) Final Date: 22 April 2025 20:08
--- NOTE | 2025-04-22 20:20 | CA ---
Transthoracic Echo Report Name: Nick Carlisle Age: 54 Gender: M : 1970 Exam Date: 04/22/2025 07:50 Exam Location: [facility] Ht (in): 71 Wt (lb): 231 Ordering Physician: Kevin Harris MD Attending/Referring Phys: [id number], Steven Barrel Assembler Helper Kalyani Hunter RDCS Procedure CPT: Indications: CP Cardiac Hx: Technical Quality: Fair Contrast 1: Definity Total Dose (mL): 2 Contrast 2: Total Dose (mL): MEASUREMENTS (Male / Female) Normal Values 2D ECHO LV Diastolic Diameter PLAX 4.9 cm 4.2 - 5.9 / 3.9 - 5.3 cm LV Systolic Diameter PLAX 2.8 cm IVS Diastolic Thickness 1.1 cm 0.6 - 1.0 / 0.6 - 0.9 cm LVPW Diastolic Thickness 1.0 cm 0.6 - 1.0 / 0.6 - 0.9 cm LV Relative Wall Thickness 0.4 RV Internal Dim ED PLAX 2.8 cm LA Systolic Diameter LX 4.4 cm 3.0 - 4.0 / 2.7 - 3.8 cm LA Volume 59.4 cm??? 18 - 58 / 22 - 52 cm??? LA Volume Index 25.6 cm???/m??? 16 - 28 cm???/m??? M-MODE Aortic Root Diameter MM 3.1 cm LA Systolic Diameter MM 4.4 cm LA Ao Ratio MM 1.4 AV Cusp Separation MM 2.0 cm DOPPLER MV Area PHT 3.0 cm??? Mitral E Point Velocity 79.0 cm/s Mitral A Point Velocity 79.4 cm/s Mitral E to A Ratio 1.0 MV Deceleration Time 251.5 ms TR Peak Velocity 214.0 cm/s TR Peak Gradient 18.3 mmHg FINDINGS Left Ventricle Left ventricular ejection fraction is estimated at 55-60 %.Normal left ventricular systolic function with no obvious regional wall motion abnormalities. Left ventricular cavity size normal. Left ventricular wall thickness normal. Right Ventricle Normal right ventricular size and function. Right ventricular systolic pressure within normal limits. Right Atrium Mild right atrial dilatation. Left Atrium Mildly increased left atrial diameter. Mildly increased left atrial volume. Mitral Valve Structurally normal mitral valve. Trace mitral regurgitation. No mitral stenosis. Aortic Valve Trileaflet aortic valve. No aortic stenosis. No aortic regurgitation. Tricuspid Valve Structurally normal tricuspid valve. Trace tricuspid regurgitation. No tricuspid stenosis. Pulmonic Valve Structurally normal pulmonic valve. Trace pulmonic regurgitation. No pulmonic stenosis. Pericardium No pericardial or pleural effusion. Aorta Normal size aortic root and proximal ascending aorta. CONCLUSIONS LVEF 55 to 60% No obvious regional wall motion abnormality Normal RV size and systolic function Mild biatrial dilatation No major valvular dysfunction Previewed by: Dr Varghese Bradley (Electronically Signed) Final Date: 22 April 2025 20:19
== END 2025-04-22 16:04 ==
LOC: EC 19:05 → 1SOBS 21:01
PROVIDERS: ADMIT Family Medicine; ATTEND Family Medicine
DX: R07.89 Other chest pain (principal); N17.9 Acute kidney failure, unspecified; I95.9 Hypotension, unspecified; M25.612 Stiffness of left shoulder, not elsewhere classified; I11.9 Hypertensive heart disease without heart failure; E78.5 Hyperlipidemia, unspecified; R20.0 Anesthesia of skin; R20.2 Paresthesia of skin; M19.90 Unspecified osteoarthritis, unspecified site; I08.1 Rheumatic disorders of both mitral and tricuspid valves; K21.9 Gastro-esophageal reflux disease without esophagitis; E66.9 Obesity, unspecified; Z68.33 Body mass index [BMI] 33.0-33.9, adult; F17.200 Nicotine dependence, unspecified, uncomplicated; F12.90 Cannabis use, unspecified, uncomplicated; F10.90 Alcohol use, unspecified, uncomplicated; Z79.899 Other long term (current) drug therapy; Z88.1 Allergy status to other antibiotic agents; Z96.642 Presence of left artificial hip joint; X30.XXXA Exposure to excessive natural heat, initial encounter
CPT/HCPCS: 96361; 96374; 99285; 36415; 93005; 93306; 93351; 85379; 80061; 80053; 84443; 83735; 84484 ×2; 85025; 85610; 85730; 83036; 93880; G0378 ×2; Q9957 ×2; J2470